=== PATIENT | male | born 1935 | race Two or more races ===

== ENCOUNTER 2024-02-16 11:10 | Emergency (ER) | payer BC, OTHER ==
[~2024-02-16] VITALS: Ht 170.2 cm; Wt 62.6 kg
[2024-02-16] MEDS ORDERED: TOPROL XL25 M1 PO (12:03)
[2024-02-16] MEDS ORDERED: ELIQUIS2.5 MG PO (12:03)
[2024-02-16] MEDS ORDERED: ENTRESTO 24 MG1 EACH PO (12:03)
[2024-02-16] MEDS ORDERED: TORSEMIDE10 MG PO (12:04)
[2024-02-16] MEDS ORDERED: JARDIANCE25 MG PO (12:04)
[2024-02-16] MEDS ORDERED: CEFTRIAXONE SODIUM 1,000 MG VIAL IM STA (13:42)
[2024-02-16 13:55] LABS: HEMATOCRIT 41.8 % (39.0-48.0); HEMOGLOBIN 14.4 g/dL (13-16.00); MEAN CELL VOLUME 90.7 fL (80.0-100.00); MEAN CORPUSCULAR HEMOGLOBIN 31.3 pg (27.00-32.0); MEAN CORPUSCULAR HGB CONC 34.6 g/dl (32.0-36.0); PLATELET COUNT 212 K/uL (150-450); RED CELL DISTRIBUTION WIDTH 13.1 % (11.5-14.5)
== END 2024-02-16 14:43 | disposition home or self-care (01) ==
LOC: ER 11:12
PROVIDERS: General Practice
DX: R05.9 Cough, unspecified (principal); I10 Essential (primary) hypertension

== ENCOUNTER 2024-07-19 11:22 | Inpatient (IN) | payer BC, OTHER ==
[~2024-07-19] VITALS: Ht 170.2 cm; Wt 62.6 kg
[~2024-07-19 11:22] MED LIST: ELIQUIS2.5 MG PO; ENTRESTO 24 MG1 EACH PO; JARDIANCE25 MG PO; TOPROL XL25 M1 PO; TORSEMIDE10 MG PO
[2024-07-19] MEDS ORDERED: ROSUVASTATIN CA40 MG PO (12:14)
[2024-07-19] MEDS ORDERED: 0.9 % SODIUM CHLORIDE 500 ML IV ONE (14:30)
[2024-07-19] MEDS ORDERED: FAMOTIDINE/PF 20 MG/2 ML VIAL IV ONE (14:30)
[2024-07-19 15:16] LABS: URINE APPEARANCE Clear; URINE BILIRRUBIN Negative (NEGATIVE); URINE BLOOD Negative; URINE COLOR Yellow; URINE KETONE Negative (NEGATIVE); URINE LEUKOCYTE Negative; URINE NITRATE Negative; URINE PROTEIN Negative (NEGATIVE); URINE UROBILINOGEN 0.2 E.U./dl
[2024-07-19 15:18] LABS: HEMATOCRIT 41.3 % (39.0-48.0); HEMOGLOBIN 13.9 g/dL (13-16.00); MEAN CORPUSCULAR HEMOGLOBIN 30.9 pg (27.00-32.0); MEAN CORPUSCULAR HGB CONC 33.6 g/dl (32.0-36.0); PLATELET COUNT 253 K/uL (150-450); RED BLOOD COUNT 4.49 M/uL (4.00-6.00); RED CELL DISTRIBUTION WIDTH 12.7 % (11.5-14.5)
[2024-07-19 15:22] LABS: URINE RBC 3.6 uL (0.0-20.8)
[2024-07-19 15:25] LABS: URINE BACTERIA 2.4 uL (0.0-1933); URINE CAST 0.58 uL (0.0-1.40); URINE EPITHELIAL CELLS 0.1 uL (0.0-38.8); URINE GLUCOSE 500 MG/DL (NEGATIVE); URINE WBC 1.2 uL (0.0-23.2)
[2024-07-19 15:36] LABS: ALBUMIN 3.6 gm/dL (3.4-5.0); BILIRUBIN TOTAL 0.73 mg/dL (0.3-1.2); CALCIUM 9.7 mg/dL (8.5-10.1); CREATININE SERUM 3.02 mg/dL (0.70-1.30); GFR 19.7; GLOBULINA 4.5 G/DL (2.4-3.5); POTASSIUM 4.14 mEq/L (3.5-5.1); TOTAL PROTEIN 8.1 gm/dL (6.4-8.2)
[2024-07-19] MEDS ORDERED: MORPHINE SULFATE 4 MG/ML VIAL IV ONE (16:30)
[2024-07-19] MEDS ORDERED: 0.9 % SODIUM CHLORIDE 1,000 ML IV SCH (21:30)
[2024-07-19] MEDS ORDERED: PIPERACILLIN/TAZOBACTAM SODIUM 2.25 GM in DEXTROSE 5 % IN WATER 50 ML IV SCH (21:30)
[2024-07-19] MEDS ORDERED: ACETAMINOPHEN 500 MG GEL..CAP PO PRN (22:00)
[2024-07-19] MEDS ORDERED: MORPHINE SULFATE 2 MG/ML CARTRIDGE IV PRN (22:00)
[2024-07-19 23:50] VITALS: BP 133/68; O2SAT 98
[2024-07-20 00:05] LABS: INR 1.1; PARTIAL THROMBOPLASTIN TIME 30.8 SECONDS (22.0-34.0); PROTHROMBIN TIME 11.9 SECONDS (9.0-11.5)
[2024-07-20 03:40] VITALS: BP 146/69; O2SAT 96
[2024-07-20 08:00] VITALS: BP 169/73; O2SAT 98
[2024-07-20 08:14] LABS: CALCIUM 9.2 mg/dL (8.5-10.1); CREATININE SERUM 2.86 mg/dL (0.70-1.30); GFR 20.97; POTASSIUM 4.58 mEq/L (3.5-5.1)
[2024-07-20] MEDS ORDERED: PATIENTS OWN MEDICATION (MEDICAMENTO EN PISO) PO SCH (09:00)
[2024-07-20] MEDS ORDERED: METOPROLOL SUCCINATE 25 MG TAB.SR.24H PO SCH (09:00)
[2024-07-20] MEDS ORDERED: ENOXAPARIN SODIUM 30 MG/0.3 ML SYRINGE SUBCUTANEO SCH (09:00)
[2024-07-20] MEDS ORDERED: PANTOPRAZOLE SODIUM 40 MG/VIAL VIAL IV SCH (09:00)
[2024-07-20 16:00] VITALS: BP 141/68; O2SAT 98
[2024-07-20] MEDS ORDERED: METROnidazole 500 MG TABLET PO SCH (17:00)
[2024-07-20] MEDS ORDERED: CEFTRIAXONE SODIUM 2,000 MG in 0.9 % SODIUM CHLORIDE 100 ML IV SCH (17:00)
[2024-07-20 21:19] LABS: ALBUMIN 3.5 gm/dL (3.4-5.0); BILIRUBIN TOTAL 0.77 mg/dL (0.3-1.2); CALCIUM 9.2 mg/dL (8.5-10.1); CREATININE SERUM 2.84 mg/dL (0.70-1.30); GFR 21.14; GLOBULINA 3.8 G/DL (2.4-3.5); POTASSIUM 4.29 mEq/L (3.5-5.1); TOTAL PROTEIN 7.3 gm/dL (6.4-8.2)
[2024-07-20 23:59] VITALS: BP 147/74; O2SAT 96
[2024-07-21 12:54] LABS: ALBUMIN 3.2 gm/dL (3.4-5.0); CALCIUM 9.1 mg/dL (8.5-10.1); CREATININE SERUM 2.73 mg/dL (0.70-1.30); GFR 22.13; PHOSPHOROUS 3.5 mg/dL (2.5-4.9); POTASSIUM 4.44 mEq/L (3.5-5.1)
[2024-07-21 14:20] VITALS: BP 95/61; O2SAT 99
[2024-07-21 16:00] VITALS: BP 137/62; O2SAT 98
[2024-07-22 00:17] VITALS: BP 149/72; O2SAT 97
[2024-07-22 06:45] LABS: HEMATOCRIT 34.9 % (39.0-48.0); MEAN CELL VOLUME 91.2 fL (80.0-100.00); MEAN CORPUSCULAR HEMOGLOBIN 31.4 pg (27.00-32.0); MEAN CORPUSCULAR HGB CONC 34.4 g/dl (32.0-36.0); PLATELET COUNT 250 K/uL (150-450); RED BLOOD COUNT 3.83 M/uL (4.00-6.00); RED CELL DISTRIBUTION WIDTH 12.7 % (11.5-14.5)
[2024-07-22 07:52] LABS: ALBUMIN 2.9 gm/dL (3.4-5.0); BILIRUBIN TOTAL 0.4 mg/dL (0.3-1.2); CALCIUM 8.9 mg/dL (8.5-10.1); CREATININE SERUM 2.43 mg/dL (0.70-1.30); GFR 25.31; GLOBULINA 3.1 G/DL (2.4-3.5); POTASSIUM 4.34 mEq/L (3.5-5.1)
[2024-07-22 08:00] VITALS: BP 136/70; O2SAT 98
[2024-07-22 08:04] LABS: PHOSPHOROUS 3.5 mg/dL (2.5-4.9)
[2024-07-22 15:30] VITALS: BP 154/67; O2SAT 96
[2024-07-23 01:22] VITALS: BP 120/73; O2SAT 98
[2024-07-23 08:41] VITALS: BP 159/78; O2SAT 96
== END 2024-07-23 12:23 | disposition home or self-care (01) | DRG 683 ==
LOC: ER 11:25 → SURG 22:29 → SEC-K 22:29 → MEDI 23:00 → SURG 07-20 01:02
PROVIDERS: Emergency Medicine; General Practice; Internal Medicine Nephrology; ADMIT Internal Medicine; ATTEND Internal Medicine
PROC: BW21ZZZ Computerized Tomography (CT Scan) of Abdomen and Pelvis (ICD-10-PCS; principal; 2024-07-19)
PROC: BT43ZZZ Ultrasonography of Bilateral Kidneys (ICD-10-PCS; 2024-07-20)
PROC: B246ZZZ Ultrasonography of Right and Left Heart (ICD-10-PCS; 2024-07-20)
DX: N17.9 Acute kidney failure, unspecified (principal); K57.32 Diverticulitis of large intestine without perforation or abscess without bleeding; E86.9 Volume depletion, unspecified; E86.0 Dehydration; K80.20 Calculus of gallbladder without cholecystitis without obstruction; I12.9 Hypertensive chronic kidney disease with stage 1 through stage 4 chronic kidney disease, or unspecified chronic kidney disease; N18.9 Chronic kidney disease, unspecified; Z95.1 Presence of aortocoronary bypass graft

== ENCOUNTER 2025-02-27 18:21 | Inpatient (IN) | payer BC, OTHER ==
[~2025-02-27] VITALS: Ht 170.2 cm; Wt 77.1 kg
[~2025-02-27 18:21] MED LIST changes: +ROSUVASTATIN CA40 MG PO
[2025-02-27] MEDS ORDERED: LEVALBUTEROL HCL 1.25 MG/3 ML SOLUTION IH ONE (19:00)
[2025-02-27] MEDS ORDERED: 0.9 % SODIUM CHLORIDE 1,000 ML IV ONE (19:00)
[2025-02-27] MEDS ORDERED: FAMOTIDINE/PF 20 MG/2 ML VIAL IV ONE (19:00)
[2025-02-27] MEDS ORDERED: FAMOTIDINE/PF 20 MG/2 ML VIAL ONE (20:41)
[2025-02-27 20:53] LABS: BASO % 0.9 % (0.1-1.2); EOS # 0.07 (0.04-0.54); EOS % 0.9 % (0.7-7.0); LYMPH # 1.63 (1.18-3.74); LYMPH % 20.5 % (19.3-53.1); MEAN PLATELET VOLUME 10.90 fl (9.4-12.4); MONO # 1.05 (0.24-0.82); NEUT # 5.11 (1.56-6.13); NEUT % 64.2 % (34.0-71.1); RED CELL DISTRIBUTION WIDTH 13.4 % (11.6-14.4)
[2025-02-27 20:55] LABS: MONO % 13.2 % (4.7-12.5)
[2025-02-27 21:12] LABS: INR 1.27
[2025-02-27 21:16] LABS: COVID-19 AG NEGATIVE (NEGATIVE)
[2025-02-27 21:21] LABS: ALT/SGPT 40.0 U/L (12-78); AST/SGOT 20.0 U/L (15-37); BILIRUBIN TOTAL 1.04 mg/dL (0.3-1.2); BUN CREA RATIO 17.0 (7.0-25.0); CREATININE SERUM 3.88 mg/dL (0.70-1.30); GFR 14.75; GLOBULINA 3.3 G/DL (2.4-3.5); GLUCOSE FASTING 139.0 mg/dL (65-100); OSMOLALITY SERUM 297.0 MOSM/KG (275-295)
[2025-02-27 21:52] LABS: URINE APPEARANCE Clear; URINE BILIRRUBIN Negative (NEGATIVE); URINE BLOOD Small; URINE COLOR Yellow; URINE KETONE Negative (NEGATIVE); URINE LEUKOCYTE Negative; URINE NITRATE Negative; URINE UROBILINOGEN 0.2 E.U./dl
[2025-02-27 21:56] LABS: URINE EPITHELIAL CELLS 5.9 uL (0.0-38.8); URINE WBC 3.3 uL (0.0-23.2)
[2025-02-27] MEDS ORDERED: NITROGLYCERIN IN 5 % DEXTROSE 250 ML IV SCH (22:00)
[2025-02-27 22:10] LABS: URINE BACTERIA 2.3 uL (0.0-1933); URINE CAST 0.87 uL (0.0-1.40); URINE GLUCOSE 500 MG/DL (NEGATIVE); URINE PROTEIN 100 (NEGATIVE); URINE RBC 1.4 uL (0.0-20.8)
[2025-02-27] MEDS ORDERED: NITROGLYCERIN IN 5 % DEXTROSE 50 MG/250 ML BOTTLE IV ONE (22:23)
[2025-02-27] MEDS ORDERED: ACETAMINOPHEN 500 MG GEL..CAP PO PRN (23:15)
[2025-02-27 23:55] VITALS: BP 137/83; O2SAT 100
[2025-02-28] VITALS (21 sets, daily range): BP systolic 112–156; BP diastolic 61–90; O2SAT 95–100
[2025-02-28] MEDS ORDERED: AMIODARONE HCL 900 MG in DEXTROSE 5 % IN WATER 500 ML IV SCH (00:30)
[2025-02-28] MEDS ORDERED: IPRATROPIUM BROMIDE 0.5 MG/2.5 ML AMPUL.NEB IH SCH (01:00)
[2025-02-28] MEDS ORDERED: FAMOTIDINE/PF 20 MG in 0.9 % SODIUM CHLORIDE 8 ML IV PUSH SCH (09:00)
[2025-02-28] MEDS ORDERED: ATORVASTATIN CALCIUM 40 MG TABLET PO SCH (09:00)
[2025-02-28] MEDS ORDERED: ENOXAPARIN SODIUM 80 MG/0.8 ML SYRINGE SUBCUTANEO SCH (09:00)
[2025-03-01] VITALS (15 sets, daily range): BP systolic 111–154; BP diastolic 64–91; O2SAT 95–100
[2025-03-01 06:53] LABS: BUN CREA RATIO 16.0 (7.0-25.0); GFR 14.28; GLUCOSE FASTING 132.0 mg/dL (65-100); OSMOLALITY SERUM 298.0 MOSM/KG (275-295)
[2025-03-01 06:56] LABS: CREATININE SERUM 3.99 mg/dL (0.70-1.30)
[2025-03-01] MEDS ORDERED: ENOXAPARIN SODIUM 80 MG/0.8 ML SYRINGE SUBCUTANEO ONE (08:11)
[2025-03-01] MEDS ORDERED: FAMOTIDINE/PF 20 MG/2 ML VIAL ONE (08:12)
[2025-03-01] MEDS ORDERED: ISOSORBIDE MONONITRATE 30 MG TABLET PO SCH (17:00)
[2025-03-01] MEDS ORDERED: hydrALAZINE HCL 20 MG VIAL IV PRN (17:15)
[2025-03-01] MEDS ORDERED: AMIODARONE HCL 200 MG TABLET PO SCH (21:19)
[2025-03-02] VITALS (14 sets, daily range): BP systolic 85–129; BP diastolic 51–86; O2SAT 96–99
[2025-03-02] MEDS ORDERED: APIXABAN 2.5 MG TABLET PO SCH (09:00)
[2025-03-02 18:50] LABS: MONONUCLEAR 82.7 %; POLYMORPHONUCLEAR 17.3 %
[2025-03-02 19:11] LABS: GLU PLEURAL FLUID 74.0 mg/dl; LDH PLEURAL FLUID 86.0 U/L; TP PLEURAL FLUID 1.9 g/dl
[2025-03-03] VITALS (8 sets, daily range): BP systolic 90–135; BP diastolic 52–75; O2SAT 90–100
[2025-03-03 07:28] LABS: BUN CREA RATIO 18.0 (7.0-25.0); GFR 13.24; GLUCOSE FASTING 101.0 mg/dL (65-100); OSMOLALITY SERUM 295.0 MOSM/KG (275-295)
[2025-03-03 07:39] LABS: CREATININE SERUM 4.26 mg/dL (0.70-1.30)
[2025-03-04 00:01] VITALS: O2SAT 98
[2025-03-04 02:56] VITALS: BP 107/54; O2SAT 99
[2025-03-04 05:28] VITALS: O2SAT 99
[2025-03-04 09:18] VITALS: O2SAT 97
[2025-03-04 09:20] VITALS: BP 114/54; O2SAT 98
[2025-03-04] MEDS ORDERED: ISOSORBIDE MONO30 MG PO (13:28)
[2025-03-04] MEDS ORDERED: LIPITOR40 M1 PO (13:28)
[2025-03-04] MEDS ORDERED: AMIODARONE HCL200 MG PO (13:28)
[2025-03-04] MEDS ORDERED: ELIQUIS2.5 MG PO (13:28)
== END 2025-03-04 13:50 | disposition home or self-care (01) | DRG 281 ==
LOC: ER 18:21 → ICU-2 23:08 → SEC-K 03-01 23:59 → MEDI 03-02 16:03
PROVIDERS: General Practice; Internal Medicine Nephrology; Radiology Vascular & Interventional Radiology; ADMIT Internal Medicine; ATTEND Internal Medicine
PROC: B24BYZZ Ultrasonography of Heart with Aorta using Other Contrast (ICD-10-PCS; principal; 2025-02-27)
PROC: BW21ZZZ Computerized Tomography (CT Scan) of Abdomen and Pelvis (ICD-10-PCS; 2025-02-27)
PROC: BW21ZZZ Computerized Tomography (CT Scan) of Abdomen and Pelvis (ICD-10-PCS; 2025-02-27)
PROC: 0W993ZZ Drainage of Right Pleural Cavity, Percutaneous Approach (ICD-10-PCS; 2025-03-02)
PROC: 0W9B3ZZ Drainage of Left Pleural Cavity, Percutaneous Approach (ICD-10-PCS; 2025-03-03)
PROC: 4A12X4Z Monitoring of Cardiac Electrical Activity, External Approach (ICD-10-PCS; 2025-03-03)
DX: I50.9 Heart failure, unspecified (principal); J90 Pleural effusion, not elsewhere classified; I21.4 Non-ST elevation (NSTEMI) myocardial infarction; K57.92 Diverticulitis of intestine, part unspecified, without perforation or abscess without bleeding; N18.30 Chronic kidney disease, stage 3 unspecified; I48.91 Unspecified atrial fibrillation